=== PATIENT | male | born 1980 | race Caucasian/White ===

== ENCOUNTER 2017-04-20 15:16 | Inpatient (IN) | payer BC ==
[~2017-04-20] VITALS: Ht 185.4 cm; Wt 113.0 kg
[2017-04-20] MEDS ORDERED: LABETALOL HCL 100 MG/20 ML VIAL IV STA ×2 (15:29→16:49)
[2017-04-20] MEDS ORDERED: LISINOPRIL 20 MG TAB PO ONE (15:30)
[2017-04-20] MEDS ORDERED: NS 1,000 ML IV ONE (15:30)
[2017-04-20 15:46] LABS: BASO # 0.1 10^3/uL (0.0-0.2); BASO % 0.6 % (0.0-1.0); EOS # 0.1 10^3/uL (0.0-0.50); EOS % 0.8 % (0.0-3.0); IMMATURE GRANULOCYTE % 0.3 % (0-0); LYMPH # 1.6 10^3/uL (1.5-4.5); LYMPH % 14.5 % (24.0-44.0); MEAN CORPUSCULAR HEMOGLOBIN 30.7 pg (27.0-33.0); MEAN CORPUSCULAR HGB CONC 35.6 g/dl (32.0-36.5); MEAN CORPUSCULAR VOLUME 86.3 fl (80.0-96.0); MONO # 0.8 10^3/uL (0.0-0.8); NEUTROPHILS # 8.3 10^3/uL (1.8-7.7); NEUTROPHILS % 76.8 % (36.0-66.0); PLATELET COUNT, AUTOMATED 348 10^3/uL (150-450); RED CELL DISTRIBUTION WIDTH 12.9 % (11.5-14.5); WHITE BLOOD COUNT 10.8 10^3/uL (4.0-10.0)
[2017-04-20 16:03] LABS: CONTROL LINE MONO INT CTR LINE PRESENT
[2017-04-20 16:10] LABS: ALBUMIN 3.7 GM/DL (3.2-5.2); ALKALINE PHOSPHATASE 137 U/L (45-117); ALT/SGPT 34 U/L (12-78); ANION GAP 10 MEQ/L (8-16); AST/SGOT 23 U/L (7-37); BILIRUBIN,DIRECT 0.1 MG/DL (0.0-0.2); BILIRUBIN,TOTAL 0.5 MG/DL (0.2-1.0); BLOOD UREA NITROGEN 12 MG/DL (7-18); CALCIUM LEVEL 9.2 MG/DL (8.5-10.1); CARBON DIOXIDE LEVEL 26 MEQ/L (21-32); CHLORIDE LEVEL 104 MEQ/L (98-107); CREATININE FOR GFR 0.77 MG/DL (0.70-1.30); GLOMERULAR FILTRATION RATE > 60.0 (>60); GLUCOSE, FASTING 119 MG/DL (70-105); POTASSIUM SERUM 3.4 MEQ/L (3.5-5.1); SODIUM LEVEL 140 MEQ/L (136-145); TOTAL PROTEIN 8.3 GM/DL (6.4-8.2)
--- NOTE | 2017-04-20 19:02 | HPEPDOC ---
General Date of Admission 04/20/17 Attending Physician: ELENA STERLING MD Chief Complaint 36-year-old male presents to the ED for elevated blood pressure per recommendation of his healthcare provider at urgent care center today. Patient states he was at the urgent care on [address] due to nausea, vomiting, diarrhea , dry cough for the past few days. Patient states he was diagnosed with a cold and stomach bug, and not started on any medication, but had SBP~200 at the clinic. Denies recent changes in medication. Denies all ROS including chest pain /pressure, shortness of breath, headache, vision change, lightheadedness, dizziness. States he was diagnosed with HTN in early 20s and has not been taking his Lisinopril 20mg and over a year due to losing his job, and has not seen a PCP in over a year. Last PCP was at [facility] [place]. In the ED patient was tachycardic at 112, BP 182/102, afebrile. No concerns on initial lab. Negative for Flu. CXR negative. Home Medications No Active Prescriptions or Reported Meds Allergies Coded Allergies: No Known Allergies (Unverified , 04/20/17) Past Medical History Medical History HTN, noncompliant Surgical History none Family History HTN in mom, dad, sister, grandparents HLD dad DM2 sister Social History tobacco: denies alcohol: socially illicit substances: denies Review of Symptoms Constitutional: Denies: Chills, Fever, Night Sweats, Weakness, Fatigue, Weight Loss Eyes: Denies: Pain, Vision change ENT: Reports: Sinus Congestion, Post Nasal Drip, Sore Throat, Denies: Head Aches, Ear Pain, Dysphagia, Epistaxis Skin: Denies: Rash, Lesions Pulmonary: Reports: Cough (dry cough), Denies: Dyspnea Cardiovascular: Denies: Chest Pain, Palpitations, Edema, Lt Headedness Gastrointestinal: Denies: Nausea, Vomiting, Abdominal Pain, Diarrhea, Constipation, Melena, Hematochezia Genitourinary: Denies: Dysuria, Hematuria Hematologic: Denies: Bruising, Bleeding Excessively Endocrine: Denies: Polydipsia, Polyphagia, Polyuria, Heat Intolerance, Cold Intolerance Neurological: Denies: Weakness, Numbness Psych: Reports: Mood Normal Physical Examination General Exam: Positive: Alert, Cooperative, No Acute Distress Eye Exam: Positive: PERRLA, Conjunctiva & lids normal, EOMI, Other Eye Symptoms (injected conjunctiva) ENT Exam: Positive: Atraumatic, Tongue Midline, Nares Patent, Negative: Mucous membr. moist/pink (dry mucous membranes), Pharyngeal Edema Neck Exam: Positive: Supple, Negative: JVD Chest Exam: Positive: Clear to auscultation, Normal air movement, Negative: Rales, Rhonchi, Wheezing Heart Exam: Positive: Rate Normal, Regular Rhythm, Normal S1, Normal S2 Abdomen Exam: Positive: Normal bowel sounds, Soft, Negative: Tenderness Extremity Exam: Negative: Edema, Tenderness, Swelling Skin Exam: Positive: Nl turgor and temperature, Negative: Rash Neuro Exam: Positive: Normal Speech, Strength at 5/5 X4 ext, Normal Tone, Sensation Intact Psych Exam: Positive: Mental status NL, Mood NL, Memory Intact, Oriented x 3 Vital Signs Vital Signs Date Time Temp Pulse Resp B/P (MAP) Pulse Ox O2 Delivery O2 Flow Rate FiO2 04/20/17 17:25 176/97 04/20/17 17:21 88 93 04/20/17 15:23 98.5 20 Room Air Laboratory Data Labs 24H Laboratory Tests 2 04/20/17 15:34: Immature Granulocyte % (Auto) 0.3H, White Blood Count 10.8H, Red Blood Count 5.54, Hemoglobin 17.0, Hematocrit 47.8, Mean Corpuscular Volume 86.3, Mean Corpuscular Hemoglobin 30.7, Mean Corpuscular Hemoglobin Concent 35.6, Red Cell Distribution Width 12.9, Platelet Count 348, Neutrophils (%) (Auto) 76.8H, Lymphocytes (%) (Auto) 14.5L, Monocytes (%) (Auto) 7.0H, Eosinophils (%) (Auto) 0.8, Basophils (%) (Auto) 0.6, Neutrophils # (Auto) 8.3H, Lymphocytes # (Auto) 1.6, Monocytes # (Auto) 0.8, Eosinophils # (Auto) 0.1, Basophils # (Auto) 0.1, Immature Granulocyte # (Auto) 0.0, Nucleated Red Blood Cells % (auto) 0.0, Anion Gap 10, Glomerular Filtration Rate > 60.0, Calcium Level 9.2, Aspartate Amino Transf (AST/SGOT) 23, Alanine Aminotransferase (ALT/SGPT) 34, Alkaline Phosphatase 137H, Total Bilirubin 0.5, Direct Bilirubin 0.1, Total Creatine Kinase 53, Creatine Kinase MB 1.0, Creatine Kinase MB Relative Index 1.88, Troponin I < 0.02, Total Protein 8.3H, Albumin 3.7, Albumin/Globulin Ratio 0.80L , Lipase 78, Monoscreen NEGATIVE CBC/BMP Laboratory Tests 04/20/17 15:34 Red Blood Count 5.54, Mean Corpuscular Volume 86.3, Mean Corpuscular Hemoglobin 30.7, Mean Corpuscular Hemoglobin Concent 35.6, Red Cell Distribution Width 12.9 , Neutrophils (%) (Auto) 76.8 H, Lymphocytes (%) (Auto) 14.5 L, Monocytes (%) ( Auto) 7.0 H, Eosinophils (%) (Auto) 0.8, Basophils (%) (Auto) 0.6, Neutrophils # (Auto) 8.3 H, Lymphocytes # (Auto) 1.6, Monocytes # (Auto) 0.8, Eosinophils # (Auto) 0.1, Basophils # (Auto) 0.1 Microbiology Microbiology 04/20/17 Influenza Virus Type A Antigen - Final, Complete 04/20/17 Influenza Virus Type B Antigen - Final, Complete 04/20/17 Group A Streptococcus Screen (JACK), Received Pending Assessment/Plan HTN Urgency 2/2 noncompliance pt has been noncompliant with home med Lisinopril 20mg for over a year incidentally found to have SBP ~200 in urgent care today while he went for assessment of his cold bp in ED was 182/102. Pt asymptomatic. Improved slightly with IV Labetalol and PO lisinopril in ED start Lisinopril 20mg PO daily, & Norvasc 10mg daily with hold parameters renal US & urine metanephrines to r/o underlying causes of HTN, as pt was diagnosed in early 20s Leukocytosis likely reactionary. Pt afebrile and asymptomatic monitor Nasal congestion, dry cough, sore throat negative Flu in ED diagnosed at urgent care today with cold continue supportive care DVT ppx: Lovenox DISPOSITION: will admit to hospitalist and transfer to Dr. Sterling's service in am. Plan / VTE VTE Prophylaxis Ordered?: Yes (Lovenox) GME ATTESTATION GME ATTESTATION My faculty preceptor for this patient encounter was physically present during the encounter and was fully available. All aspects of the patient interview, examination, medical decision making process, and medical care plan development were reviewed and approved by the faculty preceptor. The faculty preceptor is aware and concurs with the plan as stated in the body of this note and will attest to such by his/her cosignature. ATTENDING NOTE Attending Note: I have independently examined this patient and all aspects of the exam and treatment decisions have been discussed with the resident. A member of the hospitalist staff will continue to follow this patient through discharge. ANNA FINN DO Apr 20, 2017 19:02 FREIDA HENDRICKS DO Apr 20, 2017 20:18
[2017-04-20 20:42] VITALS: BP_SYST 164; BP_DIAS 76; BP_DIAS 80
[2017-04-20] MEDS: amLODIPine 10 MG TAB PO SCH (20:53)
[2017-04-21] VITALS (8 sets, daily range): BP systolic 143–172; BP diastolic 76–102
[2017-04-21] MEDS ORDERED: hydrALAZINE INJ 20 MG/ML VIAL IV ONE (01:45)
[2017-04-21] MEDS ORDERED: ACETAMINOPHEN TAB 650MG DOSE (2X325MG) PO ONE (05:45)
[2017-04-21 05:58] LABS: MEAN CORPUSCULAR HEMOGLOBIN 30.4 pg (27.0-33.0); MEAN CORPUSCULAR HGB CONC 34.8 g/dl (32.0-36.5); MEAN CORPUSCULAR VOLUME 87.3 fl (80.0-96.0); PLATELET COUNT, AUTOMATED 363 10^3/uL (150-450); WHITE BLOOD COUNT 10.8 10^3/uL (4.0-10.0)
[2017-04-21 06:14] LABS: ANION GAP 8 MEQ/L (8-16); BLOOD UREA NITROGEN 8 MG/DL (7-18); CARBON DIOXIDE LEVEL 29 MEQ/L (21-32); CHLORIDE LEVEL 103 MEQ/L (98-107); CREATININE FOR GFR 0.62 MG/DL (0.70-1.30); GLOMERULAR FILTRATION RATE > 60.0 (>60); GLUCOSE, FASTING 107 MG/DL (70-105); POTASSIUM SERUM 3.2 MEQ/L (3.5-5.1); SODIUM LEVEL 140 MEQ/L (136-145)
--- NOTE | 2017-04-21 07:35 | REP ---
REASON: Hypertension. FINDINGS: The superior mediastinal structures are midline. The cardiac silhouette is unremarkable in size, shape, and position. The diaphragmatic surfaces of the lungs are regular, and the costophrenic angles are clear. The pulmonary vargas are clear. The imaged osseous structures are intact. IMPRESSION: There is no acute cardiopulmonary disease. Signed by Ethan Lopez DO 04/21/2017 08:55 A
[2017-04-21] MEDS ORDERED: hydrALAZINE INJ 20 MG/ML VIAL IV SCH (08:00)
--- NOTE | 2017-04-21 08:03 | ECGEPIP ---
Stationary ECG Study [facility] - ED Test Date: 2017-04-20 Pat Name: FADIA HALL Department: Room: - Gender: M [employer]ising [employer] Associate: stoney : 1980 Requested By: ALICIA Walters Order Number: [id number] Reading MD: Roshan Pham Measurements Intervals [place] Rate: 99 P: 47 [place]: 136 QRS: 13 QRSD: 112 T: 47 QT: 273 QTc: 352 Interpretive Statements SINUS RHYTHM MODERATE INTRAVENTRICULAR CONDUCTION DELAY NONSPECIFIC T-WAVE ABNORMALITY NO PRIORS FOR COMPARISON Electronically Signed On 04-21-2017 8:02:42 EST by Roshan Pham
[2017-04-21] MEDS: LISINOPRIL 20 MG TAB PO SCH (08:29)
[2017-04-21] MEDS: amLODIPine 10 MG TAB PO SCH (08:29)
[2017-04-21] MEDS ORDERED: POTASSIUM CHLORIDE 10 MEQ SR TABLET PO ONE (08:30)
[2017-04-21] MEDS ORDERED: ENOXAPARIN 40 MG/0.4 ML SYRINGE (J1650) SC SCH (09:00)
--- NOTE | 2017-04-21 09:00 | REP ---
REASON: Hypertension. COMPARISON: None. FINDINGS: Multiple ultrasonographic images of the right kidney show the right kidney to measure 10.6 x 6.4 x 4.9 cm. The renal cortical echotexture is unremarkable. There are no masses. There is good corticomedullary differentiation. There is no hydronephrosis. There are no perinephric fluid collections. Multiple ultrasonographic images of the right kidney show the left kidney to measure 11.8 x 6.3 x 7.0 cm. The renal cortical echotexture is unremarkable. There are no masses. There is good corticomedullary differentiation. There is no hydronephrosis. There are no perinephric fluid collections. Evaluation of the urinary bladder showed no gross masses. Note is made of what appears to be prostatomegaly which needs to be correlated clinically. IMPRESSION: Unremarkable renal ultrasonography. Signed by Ethan Lopez DO 04/21/2017 09:31 A
[2017-04-21] MEDS ORDERED: CHLORASEPTIC SPRAY MT PRN (12:15)
[2017-04-21] MEDS: hydroCHLOROthiazide 25 MG TAB PO SCH (13:39)
[2017-04-21] MEDS: ACETAMINOPHEN TAB 650MG DOSE (2X325MG) PO PRN ×2 (14:45→23:08)
[2017-04-22] VITALS: BP 144/90
[2017-04-22 04:00] VITALS: BP 136/82
[2017-04-22 05:18] LABS: MEAN CORPUSCULAR HEMOGLOBIN 30.7 pg (27.0-33.0); MEAN CORPUSCULAR HGB CONC 35.2 g/dl (32.0-36.5); PLATELET COUNT, AUTOMATED 398 10^3/uL (150-450); RED CELL DISTRIBUTION WIDTH 13.1 % (11.5-14.5); WHITE BLOOD COUNT 11.6 10^3/uL (4.0-10.0)
[2017-04-22 05:34] LABS: ANION GAP 9 MEQ/L (8-16); BLOOD UREA NITROGEN 6 MG/DL (7-18); CARBON DIOXIDE LEVEL 27 MEQ/L (21-32); CHLORIDE LEVEL 102 MEQ/L (98-107); CREATININE FOR GFR 0.71 MG/DL (0.70-1.30); GLOMERULAR FILTRATION RATE > 60.0 (>60); GLUCOSE, FASTING 106 MG/DL (70-105); POTASSIUM SERUM 3.4 MEQ/L (3.5-5.1); SODIUM LEVEL 138 MEQ/L (136-145)
[2017-04-22 08:00] VITALS: BP 163/80
[2017-04-22] MEDS ORDERED: POTASSIUM CHLORIDE 10 MEQ SR TABLET PO ONE (08:00)
[2017-04-22 08:42] VITALS: BP 163/80
[2017-04-22] MEDS: amLODIPine 10 MG TAB PO SCH (08:42)
[2017-04-22] MEDS: hydroCHLOROthiazide 25 MG TAB PO SCH (08:42)
[2017-04-22] MEDS: LISINOPRIL 20 MG TAB PO SCH (08:42)
[2017-04-22] MEDS: ACETAMINOPHEN TAB 650MG DOSE (2X325MG) PO PRN (08:46)
[2017-04-22] MEDS ORDERED: LIDOCAINE VISCOUS 2% SOLN 15ML UDC SS ONE (09:00)
--- NOTE | 2017-04-22 10:26 | IPN ---
DATE: 04/21/2017 Mr. Mae is feeling well today. He has no complaints of pain, chest pain, shortness of breath. He does have some sore throat. Temperature 98.8, pulse 99, respiratory rate 18, blood pressure 123/85, 96% on room air. Input and output notable a positive fluid balance of 250. Body mass index 33.3. He is awake, appropriately interactive, pleasantly conversant, good historian. Mucous membranes are moist. He has some soft palate lesions on the right with some erythema. Neck supple. Breathing is symmetric at rest. Heart is in a regular rate and rhythm. ABDOMEN: Soft, doughy nontender. White cell count 10.8, hemoglobin 15.6 and platelets 363. BUN 8, creatinine 0.62, potassium 3.2. Influenza screen was negative. Respiratory panel was not done. Renal ultrasound shows the kidneys to be unremarkable. ASSESSMENT: This is a 36-year-old with uncontrolled hypertension and viral upper respiratory infection (URI). PLAN: 1. Hypertensive urgency is related to noncompliance with medication for at least a year. He does not regularly check his blood pressure at home. Started on lisinopril and Norvasc. Added hydrochlorothiazide. Will monitor clinically. If needed will given one-time doses of hydralazine, which has been quite effective. 2. The patient has viral upper respiratory infection: Will give Chloraseptic and Tylenol as needed. 3. The patient has appropriate deep venous thrombosis prophylaxis. 4. The patient has been ambulating in the hallway so we can now discontinue medicinal deep venous thrombosis prophylaxis.
[2017-04-22 12:00] VITALS: BP 138/82
[2017-04-22] MEDS ORDERED: POTA10CA PO (13:27)
[2017-04-22] MEDS ORDERED: AMLO10TA2 PO (13:27)
[2017-04-22] MEDS ORDERED: CHLORSP MT (13:27)
[2017-04-22] MEDS ORDERED: HYDR25TAB PO (13:27)
[2017-04-22] MEDS ORDERED: LISI-538 PO (13:27)
--- NOTE | 2017-04-22 15:15 | DSES ---
DATE OF ADMISSION: 04/20/2017 DATE OF DISCHARGE: No specialists involved in the care. No complications during the stay. No procedures performed during the stay. Discharge diagnoses is: 1. Hypertensive urgency. 2. Viral upper respiratory infection (URI). 3. Hypokalemia. Following is a summary of his presentation: This is a 36-year-old who has been without medical care for at least a year, previously treated for high blood pressure, not taking medication, in about the same time-frame had been taking [id number] cold medicine, presented to urgent care, was found to be hypertensive, was sent to the emergency department for evaluation, was admitted to the hospitalist service and was treated with blood pressure control and supportive care for his viral URI. Blood pressure was reasonably well controlled, although required three antihypertensives. It may be related to his acute illness. Patient is currently asymptomatic and willing to pursue further medical care as an outpatient. He will need a new primary care provider. He still has a sore throat and that has been partially helped with Chloraseptic spray. He has been afebrile during the course of his stay, although had a elevated temperature earlier today. On day of discharge, mucous membranes are moist. He has some soft palate lesions most likely related to his viral syndrome. Neck supple. No cervical or supraclavicular adenopathy. Breathing is symmetrical and rested. Heart is regular rate and rhythm. Normal S1, S2. No significant arrhythmia. No lower extremity edema. White cell count 11.6, hemoglobin 16, platelets of 398. BUN 6, creatinine 0.7, potassium 3.4. Discharge instructions include the following: Followup with new primary medical doctor (PMD) as arranged by hospitalist church secretary, which will be Dr. Sanchez, 04/30/2017, at 10:30 a.m. Diet and activity as tolerated. Medications at the time of discharge include: - amlodipine 10 mg by mouth daily - hydrochlorothiazide 25 mg by mouth daily - lisinopril 20 mg by mouth daily - Chloraseptic spray as needed - He is also given a prescription for KCl 10 mEq by mouth daily. He is given a 15 day supply of his medication, because I am (dictation cut off) should he followup he may benefit from a referral to Dr. Zavala for blood pressure management and/or sleep study.
== END 2017-04-22 15:46 | disposition home or self-care (01) | DRG 199 ==
LOC: M ED 15:16 → EDSEX 15:16 → EDBD 15:16 → M ED INP 19:49 → M PCU 20:34
PROVIDERS: ADMIT Hospitalist; ATTEND Internal Medicine
DX: I16.0 Hypertensive urgency (principal); E87.6 Hypokalemia; J06.9 Acute upper respiratory infection, unspecified; Z79.899 Other long term (current) drug therapy; Z91.19 Patient's noncompliance with other medical treatment and regimen; D72.829 Elevated white blood cell count, unspecified

== ENCOUNTER → 2017-04-30 | Outpatient (REF) | payer BC ==
[~2017-04-30] MED LIST: AMLO10TA2 PO; CHLORSP MT; HYDR25TAB PO; LISI-538 PO; POTA10CA PO
[2017-04-30 14:18] LABS: ALBUMIN 4.3 GM/DL (3.2-5.2); ALBUMIN/GLOBULIN RATIO 1.16 (1.00-1.93); ALKALINE PHOSPHATASE 112 U/L (45-117); ALT/SGPT 34 U/L (12-78); ANION GAP 8 MEQ/L (8-16); AST/SGOT 11 U/L (7-37); BILIRUBIN,TOTAL 0.5 MG/DL (0.2-1.0); BLOOD UREA NITROGEN 15 MG/DL (7-18); CALCIUM LEVEL 9.8 MG/DL (8.5-10.1); CARBON DIOXIDE LEVEL 29 MEQ/L (21-32); CHLORIDE LEVEL 100 MEQ/L (98-107); CHOLESTEROL LEVEL 164 MG/DL (<200); CREATININE FOR GFR 0.73 MG/DL (0.70-1.30); GAMMA GLUTAMYLTRANSPEPTIDASE 60 U/L (15-85); GLOMERULAR FILTRATION RATE > 60.0 (>60); GLUCOSE, FASTING 110 MG/DL (70-105); POTASSIUM SERUM 4.4 MEQ/L (3.5-5.1); SODIUM LEVEL 137 MEQ/L (136-145); TRIGLYCERIDES LEVEL 79 MG/DL (<150)
== END ==
LOC: M SFHCPLAZ 11:44
PROVIDERS: ATTEND Family Medicine
DX: E87.6 Hypokalemia (principal); R74.8 Abnormal levels of other serum enzymes; Z11.4 Encounter for screening for human immunodeficiency virus [HIV]; Z13.220 Encounter for screening for lipoid disorders; Z13.1 Encounter for screening for diabetes mellitus

== ENCOUNTER → 2017-06-06 | Outpatient (REF) | payer BC ==
[2017-06-06 20:31] LABS: APPEARANCE, URINE CLEAR (CLEAR); BACTERIA, URINE AUTO NEGATIVE (NEGATIVE); BILIRUBIN, URINE AUTO NEGATIVE (NEGATIVE); BLOOD, URINE BLOOD NEGATIVE (NEGATIVE); COLOR, URINE YELLOW (YELLOW); GLUCOSE, URINE (UA) AUTO NEGATIVE (NEGATIVE); KETONE, URINE AUTO NEGATIVE (NEGATIVE); LEUKOCYTE ESTERASE, URINE AUTO NEGATIVE (NEGATIVE); NITRITE, URINE AUTO NEGATIVE (NEGATIVE); PROTEIN, URINE AUTO NEGATIVE (NEGATIVE); RBC, URINE AUTO 1 /HPF (0-3); SPECIFIC GRAVITY URINE AUTO 1.011 (1.002-1.035); SQUAMOUS EPITHELIAL CELL UR AU 0 /HPF (0-6); UROBILINOGEN, URINE AUTO 0.2 mg/dL (0.0-2.0); WBC, URINE AUTO 3 /HPF (0-3)
== END ==
LOC: M SFHCPLAZ 17:38
DX: I10 Essential (primary) hypertension (principal)
CPT/HCPCS: 81001